=== PATIENT | male | born 1970 | race Caucasian/White ===

== ENCOUNTER 2024-11-03 17:01 | Inpatient (IN) | payer OTHER ==
[2024-11-03] MEDS ORDERED: BENZOCAINE/MENTHOL (CHLORASEPTIC ) LOZENGE MM PRN (18:03)
[2024-11-03] MEDS ORDERED: BENZONATATE 200 MG CAPSULE PO PRN (18:03)
[2024-11-03] MEDS ORDERED: NALOXONE HCL 0.4 MG/ML VIAL IVPUSH PRN (18:03)
[2024-11-03] MEDS ORDERED: MAG HYDROX/AL HYDROX/SIMETH 30 ML UNIT-DOSE CUP PO PRN (18:03)
[2024-11-03] MEDS ORDERED: guaiFENesin 600 MG TABLET.ER (FP) PO PRN (18:03)
[2024-11-03] MEDS ORDERED: MAGNESIUM HYDROX 2400MG/30ML ORAL SUSPENSION 30 ML CUP PO PRN (18:03)
[2024-11-03] MEDS ORDERED: NALOXONE (NARCAN) HCL 4 MG/0.1 ML SPRAY NS PRN (18:03)
[2024-11-03] MEDS ORDERED: IBUPROFEN 400 MG TABLET (FP) PO PRN (18:03)
[2024-11-03] MEDS ORDERED: POLYETHYLENE GLYCOL (HEALTHYLAX) 3350 17 GM PACKET PO PRN (18:03)
[2024-11-03] MEDS ORDERED: LOPERAMIDE HCL 2 MG CAPSULE PO PRN (18:03)
[2024-11-03] MEDS: THIAMINE 100 MG TABLET PO SCH (22:01)
[2024-11-03] MEDS: METHOCARBAMOL 500 MG TABLET PO PRN (22:01)
[2024-11-03] MEDS: MELATONIN 5 MG TABLETS PO SCH (22:01)
[2024-11-04] MEDS: PRENATAL VITAMINS W/ FOLIC ACID TABLET (FP) PO SCH (09:13)
[2024-11-04] MEDS: QUEtiapine FUMARATE 100 MG TABLET (FP) PO SCH (21:13)
[2024-11-05] MEDS: NICOTINE 14 MG/24 HOURS TOPICAL PATCH TD SCH (13:03)
[2024-11-05] MEDS: hydrOXYzine PAMOATE 25 MG CAPSULE (FP) PO PRN (21:14)
[2024-11-08] MEDS: NICOTINE POLACRILEX 4 MG GUM BUC PRN (14:20)
[2024-11-09 12:36] LABS: ABSOLUTE IMMATURE GRANULOCYTES 0.02 x10^3/uL (0.0-0.031); BASOPHILS # 0.05 x10^3/uL (0.01-0.08); EOSINOPHIL % 3.6 % (0.8-7.0); EOSINOPHILS # 0.19 x10^3/uL (0.04-0.54); MCHC 31.4 g/dl (32.3-36.5); MEAN CELL VOLUME 108.2 fl (79.0-92.2); MEAN PLT VOLUME 10.1 fl (9.4-12.4); MONOCYTE # 0.75 x10^3/uL (0.30-0.82); MONOCYTE % 14.1 % (5.3-12.2); RDW 13.2 % (12.2-16.1)
[2024-11-09 13:20] LABS: GLUCOSE,RANDOM 85.0 mg/dL (74-106)
[2024-11-09 13:21] LABS: TOT PROT 6.9 g/dl (6.4-8.2)
[2024-11-09 13:22] LABS: CO2 29.0 mmol/L (21-32)
[2024-11-09 13:26] LABS: CREATININE 0.95 mg/dL (0.55-1.3); SGOT/AST 24.0 U/L (5-34); SGPT/ALT 19.0 U/L (0-55)
[2024-11-09 13:34] LABS: ALK PHOS 118.0 U/L (40-150)
[2024-11-09] MEDS: IBUPROFEN 600 MG TABLET (FP) PO PRN (17:33)
[2024-11-12 07:03] VITALS: RESP 16
[2024-11-16] MEDS ORDERED: MAG HYDROX/ALH/SMC/DPHA/LIDO 240 ML MOUTHWASH MM PRN (11:49)
[2024-11-16] MEDS: ACETAMINOPHEN 325 MG TABLET (FP) PO PRN (21:23)
[2024-11-17 06:56] VITALS: BP 146/87; PULSE 77; TEMP 96.3
== END 2024-11-17 10:00 | disposition home or self-care (01) | DRG 772 ==
LOC: YASAS 17:01 → Y3NR 17:03 → Y5N 11-04 12:17
PROVIDERS: ADMIT Allergy & Immunology; ATTEND Psychiatry & Neurology Pain Medicine
PROC: HZ42ZZZ Group Counseling for Substance Abuse Treatment, Cognitive-Behavioral (ICD-10-PCS; principal; 2024-11-03)
DX: F11.20 Opioid dependence, uncomplicated (principal); F10.20 Alcohol dependence, uncomplicated; F14.20 Cocaine dependence, uncomplicated; F17.210 Nicotine dependence, cigarettes, uncomplicated; F19.282 Other psychoactive substance dependence with psychoactive substance-induced sleep disorder; I10 Essential (primary) hypertension
CPT/HCPCS: 36415; 80053; 85025; 86803